=== PATIENT | female | born 1945 | race Caucasian/White ===

== ENCOUNTER 2017-07-26 07:01 | Inpatient (IN) | payer MEDICARE, MEDICAID ==
[~2017-07-26] VITALS: Ht 170.2 cm; Wt 73.9 kg
[2017-07-26] VITALS (13 sets, daily range): BP systolic 115–146; BP diastolic 51–69
[~2017-07-26 07:01] MED LIST: SODIUM CHLORIDE 0.9% 1,000 ML IV ONE
[2017-07-26] MEDS ORDERED: SODIUM CHLORIDE 0.9% 1,000 ML IV ONE (07:05)
[2017-07-26 07:39] LABS: BASOPHILS % (AUTO) 0.9 % (0.0-2.0); HEMATOCRIT 32.3 % (36-46); LYMPHOCYTES # (AUTO) 2.2 K/uL (1.0-4.8); LYMPHOCYTES % (AUTO) 29.9 % (22.0-44.0); MEAN CORPUSCULAR HEMOGLOBIN 30.7 pg (26.0-34.0); MEAN CORPUSCULAR HGB CONC 34.2 G/dL (31.0-37.0); MEAN CORPUSCULAR VOLUME 90 fL (80-100); MONOCYTES # (AUTO) 0.6 K/uL (0.1-1.0); MONOCYTES % (AUTO) 8.5 % (2.0-9.0); NEUTROPHILS # (AUTO) 4.3 K/uL (1.8-7.7); NEUTROPHILS % (AUTO) 57.7 % (40.0-70.0); PLATELET COUNT (AUTO) 256 K/uL (150-450); RED BLOOD CELL COUNT(AUTO) 3.59 MIL/uL (4.00-5.20); RED CELL DISTRIBUTION WIDTH 14.6 % (11.5-14.5)
[2017-07-26 07:46] LABS: CALCIUM, TOTAL 8.5 mg/dL (8.8-10.5); CREATININE 1.66 mg/dL (0.60-1.30); POTASSIUM 4.7 mmol/L (3.5-5.1)
[2017-07-26 07:48] LABS: PROTHROMBIN TIME 10.2 SEC (9.4-11.6)
[2017-07-26] MEDS ORDERED: LOSA100T29 PO (08:02)
[2017-07-26] MEDS ORDERED: OMEG-135 PO (08:02)
[2017-07-26] MEDS ORDERED: METF500T6 PO (08:02)
[2017-07-26] MEDS ORDERED: GLIP5 PO (08:02)
[2017-07-26] MEDS ORDERED: AMLO-512 PO (08:02)
[2017-07-26] MEDS ORDERED: RANO500T3 PO (08:02)
[2017-07-26] MEDS ORDERED: OMEP20 PO (08:02)
[2017-07-26] MEDS ORDERED: SLOMG PO (08:02)
[2017-07-26] MEDS ORDERED: NITR0.4T50 SL (08:02)
[2017-07-26] MEDS ORDERED: ASPI81 PO (08:02)
[2017-07-26] MEDS ORDERED: ISOS30TA6 PO (08:02)
[2017-07-26] MEDS ORDERED: MULT-1203 PO (08:02)
[2017-07-26] MEDS ORDERED: ATOR-2 PO (08:02)
[2017-07-26] MEDS ORDERED: LEVO50 PO (08:02)
[2017-07-26] MEDS ORDERED: METO25 PO (08:02)
[2017-07-26] MEDS ORDERED: ACET-66 PO (08:03)
[2017-07-26] MEDS ORDERED: INSU100V SQ (08:03)
[2017-07-26] MEDS ORDERED: INSU3INS3 SQ (08:03)
[2017-07-26] MEDS ORDERED: LIDOCAINE HCL/PF 1% 30 ML VIAL ONE (08:07)
[2017-07-26] MEDS ORDERED: IOHEXOL 300 MG/ML 150 ML VIAL ONE (08:07)
[2017-07-26] MEDS ORDERED: HEPARIN SODIUM 1000 UNITS/NS 1,000 ML ONE (08:07)
[2017-07-26] MEDS ORDERED: SODIUM BICARBONATE 50 MEQ/50 ML VIAL ONE (08:07)
[2017-07-26] MEDS ORDERED: SODIUM BICARBONATE 150 MEQ in DEXTROSE 5%-WATER 850 ML IV ONE (08:20)
[2017-07-26] MEDS ORDERED: HEPARIN SODIUM 2,000 UNITS in HEPARIN SODIUM 1000 UNITS/NS 1,000 ML IARTER ONE (09:30)
[2017-07-26] MEDS ORDERED: IOHEXOL 300 MG/ML 150 ML VIAL IARTER ONE (09:30)
[2017-07-26] MEDS ORDERED: LIDOCAINE 1% 30 ML/SOD BICARB 8.4% 4 ML SQ ONE (09:30)
[2017-07-26] MEDS ORDERED: IOHEXOL 300 MG/ML 50 ML VIAL ONE (09:41)
[2017-07-26] MEDS ORDERED: IOHEXOL 300 MG/ML 100 ML VIAL ONE (09:43)
[2017-07-26] MEDS ORDERED: HEPARIN SODIUM,PORCINE 5,000 UNITS/ML VIAL IVP ONE ×3 (09:45→10:30)
[2017-07-26] MEDS ORDERED: IOHEXOL 300 MG/ML 100 ML VIAL IARTER ONE ×2 (09:45→10:15)
[2017-07-26] MEDS ORDERED: TICAGRELOR 90 MG TABLET ONE (09:48)
[2017-07-26] MEDS ORDERED: ASPIRIN 325 MG TABLET ONE (09:48)
[2017-07-26] MEDS ORDERED: NITROGLYCERIN 50 MG/D5% WATER 250 ML ONE (09:55)
[2017-07-26] MEDS ORDERED: VERAPAMIL HCL 2.5 MG/ML 2 ML VIAL ONE (09:55)
[2017-07-26] MEDS ORDERED: TICAGRELOR 90 MG TABLET PO ONE (10:00)
[2017-07-26] MEDS ORDERED: ASPIRIN 325 MG TABLET PO ONE (10:00)
[2017-07-26] MEDS ORDERED: HEPARIN SODIUM,PORCINE 1,000 UNITS/ML 10 ML VIAL ONE (10:04)
[2017-07-26] MEDS ORDERED: NITROGLYCERIN/D5W 50 MG/250 ML IV BOTTLE ICOR ONE (10:45)
[2017-07-26] MEDS ORDERED: VERAPAMIL HCL 2.5 MG/ML 2 ML VIAL ICOR ONE (10:45)
[2017-07-26] MEDS ORDERED: ACETAMINOPHEN 325 MG TABLET PO PRN ×2 (11:00→16:45)
[2017-07-26] MEDS ORDERED: DEXTROSE 50%-WATER 25 GM/50 ML SYRINGE IVP PRN ×2 (11:00→17:00)
[2017-07-26] MEDS ORDERED: LEVOTHYROXINE SODIUM 25 MCG TABLET PO ONE (11:00)
[2017-07-26] MEDS: OMEPRAZOLE 20 MG CAPSULE PO SCH (13:09)
[2017-07-26] MEDS: ISOSORBIDE MONONITRATE 30 MG ER TABLET PO SCH (13:09)
[2017-07-26] MEDS: AmLODIPine BESYLATE 5 MG TABLET PO SCH (13:09)
[2017-07-26] MEDS: METOPROLOL SUCCINATE 50 MG ER TABLET PO SCH (13:10)
[2017-07-26 15:54] LABS: GLUCOSE,POINT OF CARE 178 MG/DL (70-110)
[2017-07-26] MEDS ORDERED: ONDANSETRON HCL 4 MG/2 ML VIAL IVP PRN (16:45)
[2017-07-26] MEDS ORDERED: HYDROCODONE/ACETAMINOPHEN 5-325 MG TABLET PO PRN (16:45)
[2017-07-26] MEDS ORDERED: MAGNESIUM HYDROXIDE SUSPENSION 30 ML UDCUP PO PRN (16:45)
[2017-07-26] MEDS ORDERED: MORPHINE SULFATE 4 MG/ML SYRINGE IVP PRN (16:45)
[2017-07-26] MEDS ORDERED: ZOLPIDEM TARTRATE 5 MG TABLET PO PRN (16:45)
[2017-07-26] MEDS ORDERED: BISACODYL 10 MG RECTAL RECTAL SUPPOSITORY PR PRN (16:45)
[2017-07-26] MEDS ORDERED: INSULIN LISPRO 100 UNITS/ML SQ PRN (17:00)
[2017-07-26] MEDS: INSULIN LISPRO 100 UNITS/ML SQ PRN ×2 (17:06→20:45)
[2017-07-26] MEDS: TICAGRELOR 90 MG TABLET PO SCH (20:41)
[2017-07-26] MEDS: RANOLAZINE 500 MG SR TABLET PO SCH (20:41)
[2017-07-26] MEDS ORDERED: ATORVASTATIN CALCIUM 40 MG TABLET PO SCH (21:00)
[2017-07-26] MEDS: DOCUSATE SODIUM 100 MG CAPSULE PO SCH (21:51)
[2017-07-26] MEDS: HEPARIN SODIUM,PORCINE 5,000 UNITS/ML VIAL SQ SCH (23:55)
[2017-07-27] VITALS (7 sets, daily range): BP systolic 102–131; BP diastolic 53–62
[2017-07-27] MEDS: INSULIN LISPRO 100 UNITS/ML SQ PRN (06:12)
[2017-07-27 06:25] LABS: BASOPHILS % (AUTO) 0.6 % (0.0-2.0); EOSINOPHILS % (AUTO) 1.8 % (1.0-6.0); HEMATOCRIT 32.3 % (36-46); HEMOGLOBIN 11.1 g/dL (12.0-16.0); LYMPHOCYTES # (AUTO) 2.3 K/uL (1.0-4.8); LYMPHOCYTES % (AUTO) 23.9 % (22.0-44.0); MEAN CORPUSCULAR HEMOGLOBIN 30.6 pg (26.0-34.0); MEAN CORPUSCULAR HGB CONC 34.3 G/dL (31.0-37.0); MEAN CORPUSCULAR VOLUME 89 fL (80-100); MONOCYTES # (AUTO) 0.9 K/uL (0.1-1.0); MONOCYTES % (AUTO) 9.4 % (2.0-9.0); NEUTROPHILS % (AUTO) 64.3 % (40.0-70.0); PLATELET COUNT (AUTO) 256 K/uL (150-450); RED BLOOD CELL COUNT(AUTO) 3.62 MIL/uL (4.00-5.20)
[2017-07-27] MEDS ORDERED: GlipiZIDE 5 MG TABLET PO SCH (06:30)
[2017-07-27 06:50] LABS: ALBUMIN 3.4 g/dL (3.4-5.0); CALCIUM, TOTAL 8.8 mg/dL (8.8-10.5); CHOL/HDL RATIO 4.9 (3.9-5.7); CREATININE 1.44 mg/dL (0.60-1.30); TOTAL PROTEIN, SERUM 7.1 g/dL (6.4-8.2)
[2017-07-27 06:57] LABS: HEMOGLOBIN A1C 7.6 % (4.5-6.2)
[2017-07-27 07:08] LABS: GLUCOSE,POINT OF CARE 292 MG/DL (70-110)
[2017-07-27] MEDS: AmLODIPine BESYLATE 5 MG TABLET PO SCH (07:53)
[2017-07-27] MEDS: ISOSORBIDE MONONITRATE 30 MG ER TABLET PO SCH (07:53)
[2017-07-27] MEDS: METOPROLOL SUCCINATE 50 MG ER TABLET PO SCH (07:53)
[2017-07-27] MEDS: HEPARIN SODIUM,PORCINE 5,000 UNITS/ML VIAL SQ SCH (07:53)
[2017-07-27] MEDS: DOCUSATE SODIUM 100 MG CAPSULE PO SCH (07:53)
[2017-07-27] MEDS: TICAGRELOR 90 MG TABLET PO SCH (07:53)
[2017-07-27] MEDS: RANOLAZINE 500 MG SR TABLET PO SCH (07:53)
[2017-07-27] MEDS: OMEPRAZOLE 20 MG CAPSULE PO SCH (07:53)
[2017-07-27] MEDS ORDERED: ASPIRIN 81 MG CHEWABLE TABLET PO SCH (09:00)
[2017-07-27] MEDS ORDERED: PANTOPRAZOLE SODIUM 40 MG DR TABLET PO SCH (09:00)
[2017-07-27 12:24] LABS: GLUCOMETER DEV NAME(LOC) 5S 2Q; GLUCOSE,POINT OF CARE 177 MG/DL (70-110)
[2017-07-27 12:25] LABS: GLUCOMETER DEV NAME(LOC) 5S 2Q; GLUCOSE,POINT OF CARE 184 MG/DL (70-110)
[2017-07-27 17:03] LABS: GLUCOMETER DEV NAME(LOC) 5S 1M; GLUCOSE,POINT OF CARE 205 MG/DL (70-110)
== END 2017-07-27 13:15 | disposition home or self-care (01) | DRG 247 ==
LOC: CATHLAB 07:01 → ICU 11:15 → 5S 18:20
PROVIDERS: ADMIT Internal Medicine Cardiovascular Disease; ATTEND Internal Medicine Cardiovascular Disease
PROC: 027135Z Dilation of Coronary Artery, Two Arteries with Two Drug-eluting Intraluminal Devices, Percutaneous Approach (ICD-10-PCS; principal; 2017-07-26)
PROC: 4A023N7 Measurement of Cardiac Sampling and Pressure, Left Heart, Percutaneous Approach (ICD-10-PCS; 2017-07-26)
PROC: B2111ZZ Fluoroscopy of Multiple Coronary Arteries using Low Osmolar Contrast (ICD-10-PCS; 2017-07-26)
PROC: B2151ZZ Fluoroscopy of Left Heart using Low Osmolar Contrast (ICD-10-PCS; 2017-07-26)
DX: I25.10 Atherosclerotic heart disease of native coronary artery without angina pectoris (principal); N17.9 Acute kidney failure, unspecified; I50.32 Chronic diastolic (congestive) heart failure; I13.0 Hypertensive heart and chronic kidney disease with heart failure and stage 1 through stage 4 chronic kidney disease, or unspecified chronic kidney disease; E11.22 Type 2 diabetes mellitus with diabetic chronic kidney disease; N18.3 Chronic kidney disease, stage 3 (moderate); E03.9 Hypothyroidism, unspecified; E78.5 Hyperlipidemia, unspecified; K21.9 Gastro-esophageal reflux disease without esophagitis; Z79.4 Long term (current) use of insulin; Z79.899 Other long term (current) drug therapy; Z79.82 Long term (current) use of aspirin
CPT/HCPCS: 83036; 87081; 92920; 92921; 92928; 92929; 93005; J1644; J3490; J7030; J7060; Q9967